=== PATIENT | male | born 1955 | race Caucasian/White ===

== ENCOUNTER 2024-06-01 06:57 | Inpatient (IN) | payer MEDICARE, BC ==
[~2024-06-01] VITALS: Ht 180.3 cm; Wt 85.3 kg
[2024-06-01] MEDS ORDERED: dexaMETHasone SOD PHOSPHATE 2 ML ONE (08:54)
[2024-06-01] MEDS ORDERED: LIDOCAINE 2%-EPI 1:100,000 30 ML VIAL ONE (08:54)
[2024-06-01] MEDS ORDERED: VANCOMYCIN 1 GM VIAL ONE (08:54)
[2024-06-01] MEDS ORDERED: FAMOTIDINE/PF INJ 20 MG/2 ML VIAL IV ONE (10:44)
[2024-06-01] MEDS ORDERED: LIDOCAINE 5% OINT 35.44 GM TUBE ONE (10:44)
[2024-06-01] MEDS ORDERED: FENTANYL PF 100MCG/2ML AMPUL ONE ×2 (10:44→14:05)
[2024-06-01] MEDS ORDERED: ROCURONIUM BROMIDE 50 MG/5 ML ONE (10:45)
[2024-06-01] MEDS ORDERED: FENTANYL PF 100MCG/2ML AMPUL IV PRN (12:00)
[2024-06-01] MEDS ORDERED: ONDANSETRON HCL/PF 4 MG/2 ML VIAL IVP PRN ×2 (12:00→18:00)
[2024-06-01] MEDS ORDERED: CLINDAMYCIN IV RTU IN D5W 900 MG/50 ML PIGGYBACK IV ONE (13:00)
[2024-06-01 15:00] VITALS: BP 152/87; TEMP 98.4; O2SAT 100
[2024-06-01] MEDS ORDERED: ACETAMINOPHEN 325 MG TABLET PO PRN ×2 (15:30→18:00)
[2024-06-01] MEDS ORDERED: ONDANSETRON HCL/PF 4 MG/2 ML VIAL IV PRN (15:30)
[2024-06-01] MEDS: IV NS 0.9% 1,000 ML IV PRN (15:37)
[2024-06-01] MEDS ORDERED: ANESTHESIA TRAY IN PYXIS 1 EA TRAY MC ONE (15:43)
[2024-06-01 16:00] VITALS: BP 147/94; TEMP 98.1; O2SAT 97
[2024-06-01] MEDS ORDERED: ROSU10TA29 PO (16:12)
[2024-06-01] MEDS: HYDROMORPHONE 1 MG/1 ML DISP.SYRIN IV PRN (16:57)
[2024-06-01] MEDS ORDERED: MAG HYDROX/AL HYDROX/SIMETH 30 ML UDC PO PRN (18:00)
[2024-06-01] MEDS ORDERED: MAGNESIUM HYDROXIDE 30 ML UDC PO PRN (18:00)
[2024-06-01] MEDS ORDERED: Z GUARD REMEDY 4 OZ OINT TP PRN (18:00)
[2024-06-01] MEDS ORDERED: HYDROCODONE/APAP 5/325MG TABLET PO PRN (18:00)
[2024-06-01 20:48] VITALS: BP 156/95; TEMP 98.4; O2SAT 99
[2024-06-01] MEDS: VANCOMYCIN 1 GM in IV D5W 250ml IV SCH (22:52)
[2024-06-02 07:57] VITALS: BP 137/83; TEMP 98.8; O2SAT 98
[2024-06-02 08:26] LABS: BASOPHILS % (AUTO) 0.1 % (0.0-2.0); HEMATOCRIT 43 % (39-51); HEMOGLOBIN 14.5 g/dL (13.5-17.5); LYMPHOCYTES # (AUTO) 1.9 K/uL (0.8-4.8); LYMPHOCYTES % (AUTO) 14.9 % (20.0-44.0); MEAN CORPUSCULAR HEMOGLOBIN 31 PG (26.0-33.0); MEAN CORPUSCULAR HGB CONC 34 g/dl (31.0-36.0); MEAN CORPUSCULAR VOLUME 91 fL (80-96); MONOCYTES # (AUTO) 1.5 K/uL (0.1-1.30); MONOCYTES % (AUTO) 11.7 % (2.0-12.0); NEUTROPHILS # (AUTO) 9.3 K/uL (1.8-8.9); NEUTROPHILS % (AUTO) 73.3 % (43.0-81.0); PLATELET COUNT (AUTO) 165 K/uL (150-450); RED BLOOD CELL COUNT(AUTO) 4.75 MIL/uL (4.5-6.0); RED CELL DISTRIBUTION WIDTH 13.5 % (11.5-15.0); WHITE BLOOD COUNT (AUTO) 12.6 K/uL (4.3-11.0)
[2024-06-02 08:29] VITALS: BP 137/83; TEMP 98.9; O2SAT 98
[2024-06-02 10:20] LABS: CALCIUM, SERUM 8.5 mg/dL (8.5-10.1); CREATININE 0.9 mg/dL (0.6-1.3); MAGNESIUM 2.4 mg/dL (1.8-2.4); PHOSPHORUS 2.7 mg/dL (2.5-4.9)
== END 2024-06-02 12:45 | disposition home or self-care (01) | DRG 141 ==
LOC: DS 06:57 → MED 15:02
PROVIDERS: ADMIT Internal Medicine; ATTEND Internal Medicine
PROC: 0N5V0ZZ Destruction of Left Mandible, Open Approach (ICD-10-PCS; principal; 2024-06-01)
PROC: 0NSR04Z Reposition Maxilla with Internal Fixation Device, Open Approach (ICD-10-PCS; 2024-06-01)
PROC: 0N5T0ZZ Destruction of Right Mandible, Open Approach (ICD-10-PCS; 2024-06-01)
PROC: 0N5R0ZZ Destruction of Maxilla, Open Approach (ICD-10-PCS; 2024-06-01)
PROC: 0NSV04Z Reposition Left Mandible with Internal Fixation Device, Open Approach (ICD-10-PCS; 2024-06-01)
PROC: 0NST04Z Reposition Right Mandible with Internal Fixation Device, Open Approach (ICD-10-PCS; 2024-06-01)
PROC: 0NUV07Z Supplement Left Mandible with Autologous Tissue Substitute, Open Approach (ICD-10-PCS; 2024-06-01)
PROC: 0NUR07Z Supplement Maxilla with Autologous Tissue Substitute, Open Approach (ICD-10-PCS; 2024-06-01)
PROC: 0NUT07Z Supplement Right Mandible with Autologous Tissue Substitute, Open Approach (ICD-10-PCS; 2024-06-01)
DX: S02.40DA Maxillary fracture, left side, initial encounter for closed fracture (principal); S02.69XK Fracture of mandible of other specified site, subsequent encounter for fracture with nonunion; S02.40CA Maxillary fracture, right side, initial encounter for closed fracture; M27.2 Inflammatory conditions of jaws; D16.4 Benign neoplasm of bones of skull and face; E78.5 Hyperlipidemia, unspecified; I10 Essential (primary) hypertension; Z82.49 Family history of ischemic heart disease and other diseases of the circulatory system; Z87.442 Personal history of urinary calculi; J32.0 Chronic maxillary sinusitis; X58.XXXA Exposure to other specified factors, initial encounter; Y93.9 Activity, unspecified; Y92.009 Unspecified place in unspecified non-institutional (private) residence as the place of occurrence of the external cause
CPT/HCPCS: 36415; 80048-TC; 83735-TC; 84100-TC; 85025-TC; A4223; A4338; C1713; G0378; J1100; J1171; J3010; J3370; J3490; J7060

== ENCOUNTER 2024-09-22 06:36 | Inpatient (IN) | payer MEDICARE, BC ==
[~2024-09-22] VITALS: Ht 177.8 cm; Wt 86.2 kg
[~2024-09-22 06:36] MED LIST: ROSU10TA29 PO
[2024-09-22] MEDS ORDERED: dexaMETHasone SOD PHOSPHATE 2 ML ONE (06:52)
[2024-09-22] MEDS ORDERED: LIDOCAINE 2%-EPI 1:100,000 30 ML VIAL ONE (06:52)
[2024-09-22] MEDS ORDERED: VANCOMYCIN 1 GM VIAL ONE (06:53)
[2024-09-22] MEDS ORDERED: FENTANYL PF 250MCG/5ML AMPUL ONE (07:11)
[2024-09-22] MEDS ORDERED: ROCURONIUM BROMIDE 50 MG/5 ML ONE (07:12)
[2024-09-22] MEDS: IV NS 0.9% 1,000 ML IV PRN (09:56)
[2024-09-22] MEDS ORDERED: ACETAMINOPHEN 325 MG TABLET PO PRN (10:00)
[2024-09-22] MEDS ORDERED: HYDROMORPHONE INJ 2 MG/ML DISP.SYRIN IV PRN ×2 (10:00)
[2024-09-22] MEDS ORDERED: ONDANSETRON HCL/PF 4 MG/2 ML VIAL IV PRN (10:00)
[2024-09-22] MEDS: VANCOMYCIN 1 GM in IV D5W 250ml IV SCH (19:09)
[2024-09-22 20:00] VITALS: BP 132/93; TEMP 98.2; O2SAT 95
[2024-09-23 08:00] VITALS: BP 127/77; TEMP 98.1; O2SAT 98
[2024-09-23 08:47] VITALS: BP 127/77; TEMP 98.1; O2SAT 98
== END 2024-09-23 09:45 | disposition home or self-care (01) | DRG 497 ==
LOC: DS 06:36 → MED 10:17
PROVIDERS: ADMIT Dentist Oral and Maxillofacial Surgery; ATTEND Dentist Oral and Maxillofacial Surgery
PROC: 0N5R0ZZ Destruction of Maxilla, Open Approach (ICD-10-PCS; 2024-09-22)
PROC: 0N5T0ZZ Destruction of Right Mandible, Open Approach (ICD-10-PCS; 2024-09-22)
PROC: 0NUV0KZ Supplement Left Mandible with Nonautologous Tissue Substitute, Open Approach (ICD-10-PCS; 2024-09-22)
PROC: 0NUR0KZ Supplement Maxilla with Nonautologous Tissue Substitute, Open Approach (ICD-10-PCS; 2024-09-22)
PROC: 0NUT0KZ Supplement Right Mandible with Nonautologous Tissue Substitute, Open Approach (ICD-10-PCS; 2024-09-22)
PROC: 0NPW04Z Removal of Internal Fixation Device from Facial Bone, Open Approach (ICD-10-PCS; principal; 2024-09-22 07:30)
DX: T84.69XA Infection and inflammatory reaction due to internal fixation device of other site, initial encounter (principal); Y83.8 Other surgical procedures as the cause of abnormal reaction of the patient, or of later complication, without mention of misadventure at the time of the procedure; Y92.009 Unspecified place in unspecified non-institutional (private) residence as the place of occurrence of the external cause; K13.70 Unspecified lesions of oral mucosa; K12.30 Oral mucositis (ulcerative), unspecified; E78.5 Hyperlipidemia, unspecified; I10 Essential (primary) hypertension; Z82.49 Family history of ischemic heart disease and other diseases of the circulatory system; Z87.442 Personal history of urinary calculi
CPT/HCPCS: 71046; 88300-TC; 88305-TC; 88311-TC; A4338; G0378; J0461; J0690; J1100; J1171; J2704; J3010; J3370; J3490; J7030; J7060